=== PATIENT | female | born 1995 | race Native Hawaiian/Other Pacific Islander ===

== ENCOUNTER 2017-04-06 10:08 | Emergency (ER) | payer OTHER ==
[~2017-04-06] VITALS: Ht 162.6 cm; Wt 83.0 kg
[2017-04-06 12:12] LABS: POTASSIUM 3.6 mmol/L (3.6-5.2); SODIUM 134 mmol/L (136-145)
[2017-04-06 12:13] LABS: PLATELET COUNT 270 K/uL (152-353)
[2017-04-06 12:52] VITALS: BP 120/70; TEMP 98
== END 2017-04-06 12:52 | disposition home or self-care (01) ==
LOC: ED 10:08
PROVIDERS: Specialist
DX: O21.0 Mild hyperemesis gravidarum (principal)
CPT/HCPCS: 36415; 80053; 81000; 83690; 85027; 96360; 96365; 99284; J2405; J7060

== ENCOUNTER 2018-12-04 12:47 | Emergency (ER) | payer OTHER ==
[~2018-12-04] VITALS: Ht 160 cm; Wt 76.7 kg
[2018-12-04 13:05] VITALS: BP 107/62; TEMP 97.9
== END 2018-12-04 14:20 | disposition home or self-care (01) ==
LOC: ED 12:47
DX: M54.5 Low back pain (principal); R10.9 Unspecified abdominal pain
CPT/HCPCS: 81000; 81025; 99283